=== PATIENT | female | born 1945 | race Caucasian/White ===

== ENCOUNTER 2020-09-02 20:16 | Inpatient (IN) ==
[2020-09-02] MEDS ORDERED: Ondansetron 4 MG/2 ML VIAL IVP ONE (21:02)
[2020-09-02] MEDS ORDERED: Isovue-370 500 ML BOTTLE IVP ONE (21:03)
[2020-09-02] MEDS ORDERED: Morphine Sulfate 2 MG/ML SYRINGE IVP ONE ×2 (21:13→23:37)
[2020-09-02] MEDS ORDERED: 0.9 % Sodium Chloride 1,000 ML IVC ONE (21:13)
[2020-09-02 21:48] LABS: Bacteria,Urine Few per hpf (None-Few); Bilirubin,Urine Negative (Negative); Blood,Urine Large (Negative); Clarity,Urine Clear (Clear); Color,Urine Light-Yellow (Yellow); Glucose,Urine (UA) Normal (Normal); Ketones,Urine Negative (Negative); Leukocyte Esterase,Urine Negative (Negative); Mucus,Urine Few per lpf (None-Few); Nitrite,Urine Negative (Negative); Protein,Urine Trace mg/dL (Neg-Trace); RBC,Urine 15-30 per hpf (0-3); Specific Gravity,Urine 1.023 (1.010-1.025); Squamous Epithelial Cell,Urine Moderate per hpf (None-Few); Urobilinogen,Urine Normal (Normal)
[2020-09-02 21:51] LABS: Basophils % 0.3 %; Eosinophils # 0.1 K/mcL (0.0-0.6); Eosinophils % 0.6 %; Hematocrit 42.8 % (35.3-44.9); Hemoglobin 14.5 g/dL (11.5-15.4); Immature Granulocytes % 0.2 % (0-4); Lymphocytes # 2.7 K/mcL (0.6-4.6); Lymphocytes % 26.5 %; Mean Corpuscular HGB Conc 33.9 g/dL (31.6-35.5); Mean Corpuscular Hemoglobin 32.8 pg (28.0-33.3); Mean Corpuscular Volume 96.8 fL (83.0-100.0); Mean Platelet Volume 10.1 fL (9.4-12.4); Monocytes # 1.3 K/mcL (0.0-1.3); Monocytes % 12.8 %; Platelet Count 182 K/mcL (140-400); Red Blood Count 4.42 M/mcL (3.82-4.97); Segmented Neutrophils % 59.6 %; White Blood Count 10.1 K/mcL (4.3-11.1)
[2020-09-02 21:55] LABS: INR 1.9; Prothrombin Time 21.2 Seconds (9.4-12.1)
[2020-09-02 22:05] LABS: Alanine Aminotransferase 19 Units/L (7-52); Albumin/Globulin Ratio 1.3 (1.1-2.2); Alkaline Phosphatase 87 Units/L (34-104); Aspartate Amino Transferase 19 Units/L (13-39); BUN/Creatinine Ratio 23 (6-26); Bilirubin,Direct 0.1 mg/dL (0.0-0.2); Bilirubin,Indirect 0.5 mg/dL (0.0-1.0); Bilirubin,Total 0.6 mg/dL (0.3-1.0); Blood Urea Nitrogen 26 mg/dL (8-23); Calcium 9.6 mg/dL (8.6-10.3); Carbon Dioxide 24 mEq/L (23-29); Chloride 106 mEq/L (98-107); Glucose 139 mg/dL (70-105); Lipase 42 Units/L (11-82); Osmolality,Calculated 297 (280-300); Potassium 3.4 mEq/L (3.5-5.1); Sodium 140 mEq/L (136-145); Troponin I < 0.03 ng/mL (< 0.04); eGFR For African Americans 58 (> 60); eGFR For Non-African Americans 48 (> 60)
[2020-09-02] MEDS ORDERED: 0.9 % Sodium Chloride 1,000 ML IVC SCH (23:45)
[2020-09-03] MEDS ORDERED: *HR* Promethazine 25 MG/ML VIAL IM PRN ×2 (00:23→13:54)
[2020-09-03] MEDS ORDERED: Naloxone 0.4 MG/ML INJ IVP PRN ×2 (00:23→13:54)
[2020-09-03] MEDS ORDERED: Ringers Solution, Lactated 1,000 ML IVC SCH ×2 (00:30→13:54)
[2020-09-03] MEDS ORDERED: Potassium Chloride 20 MEQ, Lidocaine 1% 2 ML in 0.9 % Sodium Chloride 250 ML IVPB ONE (01:00)
[2020-09-03] MEDS ORDERED: Albumin 25% 25gram/100mL 25 GM/100 ML IV.SOLN ONE (01:03)
[2020-09-03] MEDS: Ondansetron 4 MG/2 ML VIAL IVP PRN ×2 (02:05→09:20)
[2020-09-03] MEDS ORDERED: *HR* Heparin 5,000 UNIT/ML VIAL SQ SCH (06:00)
[2020-09-03 06:45] LABS: Basophils % 0.1 %; Eosinophils # 0.1 K/mcL (0.0-0.6); Eosinophils % 0.6 %; Hematocrit 38.3 % (35.3-44.9); Immature Granulocytes % 0.3 % (0-4); Lymphocytes # 2.7 K/mcL (0.6-4.6); Lymphocytes % 31.1 %; Mean Corpuscular HGB Conc 33.7 g/dL (31.6-35.5); Mean Corpuscular Hemoglobin 32.7 pg (28.0-33.3); Mean Corpuscular Volume 97.2 fL (83.0-100.0); Mean Platelet Volume 10.2 fL (9.4-12.4); Monocytes % 11.1 %; Platelet Count 156 K/mcL (140-400); Red Blood Count 3.94 M/mcL (3.82-4.97); Segmented Neutrophils % 56.8 %; White Blood Count 8.8 K/mcL (4.3-11.1)
[2020-09-03 06:48] LABS: Hemoglobin 12.9 g/dL (11.5-15.4)
[2020-09-03 06:52] LABS: INR 1.5; Prothrombin Time 17.1 Seconds (9.4-12.1)
[2020-09-03 07:04] LABS: Alanine Aminotransferase 14 Units/L (7-52); Albumin 3.6 g/dL (3.5-5.7); Albumin/Globulin Ratio 1.5 (1.1-2.2); Alkaline Phosphatase 63 Units/L (34-104); Aspartate Amino Transferase 15 Units/L (13-39); BUN/Creatinine Ratio 21 (6-26); Bilirubin,Total 0.6 mg/dL (0.3-1.0); Blood Urea Nitrogen 20 mg/dL (8-23); Calcium 8.8 mg/dL (8.6-10.3); Carbon Dioxide 25 mEq/L (23-29); Chloride 108 mEq/L (98-107); Globulin 2.4 g/dL (2.4-3.5); Glucose 129 mg/dL (70-105); Magnesium 1.4 mg/dL (1.6-2.6); Osmolality,Calculated 292 (280-300); Potassium 3.5 mEq/L (3.5-5.1); Sodium 139 mEq/L (136-145); eGFR For African Americans > 60 (> 60); eGFR For Non-African Americans 58 (> 60)
[2020-09-03] MEDS ORDERED: Magnesium Sulfate 1 GM/102 ML PIGGYBACK IVPB ONE (07:45)
[2020-09-03] MEDS ORDERED: Ondansetron 4 MG/2 ML VIAL IVP PRN ×2 (08:36→13:54)
[2020-09-03] MEDS ORDERED: *HR* HYDROmorphone PF 0.5 MG/0.5 ML SYRINGE IVP PRN (08:36)
[2020-09-03] MEDS ORDERED: *HR* OxyCODONE Immed Rel 5 MG TABLET PO PRN (08:36)
[2020-09-03] MEDS ORDERED: Promethazine 6.25 MG in Water for inj. (sterile) 20 ML IVPB PRN (08:36)
[2020-09-03 09:40] LABS: Adenovirus Not Detected (Not Detect); Bordetella Pertussis Not Detected (Not Detect); Chlamydophila pneumoniae Not Detected (Not Detect); Coronavirus 229E Not Detected (Not Detect); Coronavirus HKU1 Not Detected (Not Detect); Coronavirus NL63 Not Detected (Not Detect); Coronavirus OC43 Not Detected (Not Detect); Human Metapneumovirus Not Detected (Not Detect); Human Rhinovirus/Enterovirus Not Detected (Not Detect); Influenza A Subtype 2009 H1 Not Detected (Not Detect); Influenza B Not Detected (Not Detect); Mycoplasma pneumoniae Not Detected (Not Detect); Parainfluenza Virus 1 Not Detected (Not Detect); Parainfluenza Virus 2 Not Detected (Not Detect); Parainfluenza Virus 3 Not Detected (Not Detect); Parainfluenza Virus 4 Not Detected (Not Detect); Respiratory Syncytial Virus Not Detected (Not Detect); SARS-CoV-2 Not Detected (Not Detect)
[2020-09-03] MEDS ORDERED: Acetaminophen IV 1,000 MG/100 ML BAG IVPB ONE (10:05)
[2020-09-03] MEDS ORDERED: Haloperidol Lactate 5 MG/ML VIAL ONE (10:12)
[2020-09-03] MEDS ORDERED: *HR* Rocuronium Bromide 50 MG/5 ML VIAL ONE (10:17)
[2020-09-03] MEDS ORDERED: *HR* Propofol 200 MG/20 ML VIAL IVP ONE (10:17)
[2020-09-03] MEDS ORDERED: Lidocaine -MPF 2% 2 ML VIAL ONE (10:17)
[2020-09-03] MEDS ORDERED: Lidocaine HCL 4 ML Topical Solution (Laryng-O-Jet Kit Sterile Pak) TP ONE (10:17)
[2020-09-03] MEDS ORDERED: *HR* FentaNYL (PF) 100 MCG/2 ML VIAL ONE ×2 (10:17→11:53)
[2020-09-03] MEDS ORDERED: ceFAZolin 2,000 MG in Water for inj. (sterile) 20 ML IVP ONE (10:48)
[2020-09-03] MEDS ORDERED: *HR* Succinylcholine 200 MG/10 ML VIAL IVP ONE (10:49)
[2020-09-03] MEDS ORDERED: Sugammadex Sodium 200 MG/2 ML VIAL IV ONE (11:48)
[2020-09-03] MEDS: *HR* Heparin 5,000 UNIT/ML VIAL SQ SCH (17:03)
[2020-09-03] MEDS ORDERED: *HR* Metoprolol 5 MG/5 ML VIAL IVP PRN (17:14)
[2020-09-04] MEDS: *HR* Heparin 5,000 UNIT/ML VIAL SQ SCH ×2 (05:51→18:15)
[2020-09-04 07:43] LABS: Hematocrit 38.3 % (35.3-44.9); Hemoglobin 12.7 g/dL (11.5-15.4); Immature Granulocytes % 0.6 % (0-4); Lymphocytes # 0.9 K/mcL (0.6-4.6); Lymphocytes % 10.1 %; Mean Corpuscular HGB Conc 33.2 g/dL (31.6-35.5); Mean Corpuscular Hemoglobin 32.2 pg (28.0-33.3); Mean Corpuscular Volume 97.2 fL (83.0-100.0); Mean Platelet Volume 10.5 fL (9.4-12.4); Monocytes # 0.8 K/mcL (0.0-1.3); Monocytes % 8.3 %; Neutrophils # 7.4 K/mcL (1.6-8.9); Platelet Count 149 K/mcL (140-400); Red Blood Count 3.94 M/mcL (3.82-4.97); White Blood Count 9.1 K/mcL (4.3-11.1)
[2020-09-04 07:55] LABS: BUN/Creatinine Ratio 20 (6-26); Blood Urea Nitrogen 20 mg/dL (8-23); Calcium 9.1 mg/dL (8.6-10.3); Carbon Dioxide 26 mEq/L (23-29); Chloride 103 mEq/L (98-107); Glucose 158 mg/dL (70-105); Magnesium 1.5 mg/dL (1.6-2.6); Osmolality,Calculated 292 (280-300); Potassium 3.7 mEq/L (3.5-5.1); Sodium 138 mEq/L (136-145); eGFR For African Americans > 60 (> 60); eGFR For Non-African Americans 54 (> 60)
[2020-09-04] MEDS: carvediloL 25 MG TABLET PO SCH (18:15)
[2020-09-05 03:24] LABS: BUN/Creatinine Ratio 26 (6-26); Blood Urea Nitrogen 23 mg/dL (8-23); Calcium 8.9 mg/dL (8.6-10.3); Carbon Dioxide 28 mEq/L (23-29); Chloride 104 mEq/L (98-107); Glucose 150 mg/dL (70-105); Magnesium 1.9 mg/dL (1.6-2.6); Osmolality,Calculated 291 (280-300); Phosphorous 2.2 mg/dL (2.7-4.5); Potassium 3.8 mEq/L (3.5-5.1); Sodium 137 mEq/L (136-145); eGFR For African Americans > 60 (> 60); eGFR For Non-African Americans > 60 (> 60)
[2020-09-05 03:26] LABS: Basophils % 0.1 %; Hemoglobin 11.6 g/dL (11.5-15.4); Immature Granulocytes % 0.4 % (0-4); Lymphocytes # 1.8 K/mcL (0.6-4.6); Lymphocytes % 16.5 %; Mean Corpuscular HGB Conc 33.1 g/dL (31.6-35.5); Mean Corpuscular Hemoglobin 31.9 pg (28.0-33.3); Mean Corpuscular Volume 96.2 fL (83.0-100.0); Mean Platelet Volume 10.2 fL (9.4-12.4); Monocytes # 1.4 K/mcL (0.0-1.3); Monocytes % 12.9 %; Neutrophils # 7.8 K/mcL (1.6-8.9); Platelet Count 143 K/mcL (140-400); Red Blood Count 3.64 M/mcL (3.82-4.97); Red Cell Distribution Width 12.2 % (11.5-14.5); Segmented Neutrophils % 70.1 %; White Blood Count 11.1 K/mcL (4.3-11.1)
[2020-09-05] MEDS: *HR* Heparin 5,000 UNIT/ML VIAL SQ SCH (06:23)
[2020-09-05] MEDS: hydroCHLOROthiazide 25 MG TABLET PO SCH (07:43)
[2020-09-05] MEDS: Lactobacillus 1 EACH CAP.SPRINK PO SCH (07:44)
[2020-09-05] MEDS: carvediloL 25 MG TABLET PO SCH ×2 (07:45→16:50)
[2020-09-05] MEDS ORDERED: Potassium Phosphate 44 MEQ in 0.9 % Sodium Chloride 250 ML IVPB ONE (08:13)
[2020-09-05] MEDS ORDERED: *HR* Amiodarone 200 MG TABLET PO SCH (14:00)
[2020-09-05] MEDS: Apixaban 5 MG TABLET PO SCH (21:51)
[2020-09-06 02:42] LABS: Basophils % 0.1 %; Eosinophils % 0.3 %; Hematocrit 36.3 % (35.3-44.9); Immature Granulocytes % 0.3 % (0-4); Lymphocytes % 28.1 %; Mean Corpuscular HGB Conc 33.1 g/dL (31.6-35.5); Mean Corpuscular Hemoglobin 31.8 pg (28.0-33.3); Mean Corpuscular Volume 96.3 fL (83.0-100.0); Mean Platelet Volume 10.2 fL (9.4-12.4); Monocytes # 1.5 K/mcL (0.0-1.3); Monocytes % 14.2 %; Neutrophils # 6.1 K/mcL (1.6-8.9); Platelet Count 150 K/mcL (140-400); Red Blood Count 3.77 M/mcL (3.82-4.97); Red Cell Distribution Width 12.3 % (11.5-14.5); White Blood Count 10.7 K/mcL (4.3-11.1)
[2020-09-06 03:04] LABS: BUN/Creatinine Ratio 25 (6-26); Blood Urea Nitrogen 23 mg/dL (8-23); Calcium 9.1 mg/dL (8.6-10.3); Carbon Dioxide 27 mEq/L (23-29); Chloride 103 mEq/L (98-107); Glucose 119 mg/dL (70-105); Magnesium 1.8 mg/dL (1.6-2.6); Osmolality,Calculated 291 (280-300); Phosphorous 3.3 mg/dL (2.7-4.5); Potassium 3.6 mEq/L (3.5-5.1); Sodium 138 mEq/L (136-145); eGFR For African Americans > 60 (> 60); eGFR For Non-African Americans 60 (> 60)
[2020-09-06] MEDS: Lactobacillus 1 EACH CAP.SPRINK PO SCH (09:05)
[2020-09-06] MEDS: Apixaban 5 MG TABLET PO SCH (09:05)
[2020-09-06] MEDS: carvediloL 25 MG TABLET PO SCH (09:05)
[2020-09-06] MEDS: hydroCHLOROthiazide 25 MG TABLET PO SCH (09:05)
[2020-09-06 10:40] VITALS: BP 109/67
== END 2020-09-06 14:15 | disposition home or self-care (01) | DRG 336 ==
LOC: 3BNU 20:16 → EMEROOARM 20:16 → 3BNU 09-03 00:18 → SUATTDRO 09-03 15:47 → 3ANU 09-03 22:21
PROVIDERS: ADMIT Student in an Organized Health Care Education/Training Program; ATTEND Family Medicine